=== PATIENT | male | born 1995 | race Caucasian/White ===

== ENCOUNTER 2025-06-04 05:40 | Emergency (ER) | payer MEDICAID, SELFPAY ==
[2025-06-04 05:41] VITALS: BMI 25.1
[2025-06-04 06:09] VITALS: BP 151/74; PULSE 70; RESP 16; TEMP 36.5; O2SAT 97
--- NOTE | 2025-06-04 06:17 | EDNOTE_ITS ---
<Statement entered by Rashida Hartman MD - 06/04/25 11:01> As co-signing physician, I was present and available for consult prn. I concur with the plan and care as documented by the midlevel provider. ED Eye Problem RME/HPI General Chief complaint: Eye Problems Stated complaint: L EYE INJURY Time Seen by Provider: 06/04/25 06:12 Source: patient Arrival date/time: 06/04/25 05:40 29-year-old male with no known medical history presents to the emergency room wi th a chief complaint of tenderness to his left eye. Patient states last night his son accidentally poked him in the eye Mode of arrival: ambulatory Limitations: no limitations Related Data Previous Rx's ?Medication ?Instructions ?Recorded cephalexin 500 mg capsule 500 mg PO Q8H #30 caps 08/15 ibuprofen 800 mg tablet (IBU) 800 mg PO TID PRN pain # 30 tabs 08/15/21 cephalexin 500 mg capsule 500 mg PO QID #30 caps 02/09 tamsulosin 0.4 mg capsule (Flomax) 0.4 mg PO QDAY #5 c aps 02/09/23 ciprofloxacin HCl 0.3 % eye drops See Rx Instructions ophthalmic 06/04/25 (eye) .COMPLEX #5 mL Allergies Allergy/AdvReac Type Severity Reaction Status Date / Time No Known Allergies Allergy Verified 06/04/25 05:45 Review of Systems Review of Systems Systems Reviewed: All systems reviewed, normal except as documented Constitutional Constitutional: Reports system reviewed and no additional complaints, except as documented, Denies fatigue, Denies fever(s), Denies headache(s) and Denies weakness Eyes Eyes: Reports system reviewed and no additional complaints, except as documented, Denies blind spots, Reports blurry vision, Denies change in vision, Denies decreased night vision, Denies diplopia, Denies eye discharge, Denies floaters, Denies loss of peripheral vision, Denies loss of vision, Denies other visual disturbances, Reports eye pain, Denies photophobia, Denies requires corrective lenses, Denies seeing flashes, Denies spots in vision and Denies tunnel vision ENT Ears, Nose, Mouth, and Throat: Reports system reviewed and no additional complaints, except as documented, Denies otalgia, Denies headache(s), Denies nasal congestion, Denies throat swelling and Denies vertigo Cardiovascular Cardiovascular: Reports system reviewed and no additional complaints, except as documented, Denies chest pain, Denies dyspnea and Denies dyspnea on exertion Respiratory Respiratory: Reports system reviewed and no additional complaints, except as documented, Denies chest congestion, Denies cough, Denies dyspnea, Denies dyspnea on exertion and Denies wheezing Gastrointestinal Gastrointestinal: Reports system reviewed and no additional complaints, except as documented, Denies abdominal pain, Denies cramping, Denies nausea and Denies vomiting Genitourinary Genitourinary: Reports system reviewed and no additional complaints, except as documented, Denies dysuria and Denies hematuria Musculoskeletal Musculoskeletal: Reports system reviewed and no additional complaints, except as documented and Denies back pain Integumentary/Breasts Skin/Breast: Reports system reviewed and no additional complaints, except as documented and Denies wounds Neurologic Neurologic: Reports system reviewed and no additional complaints, except as documented, Denies confusion, Denies headache(s), Denies lack of coordination, Denies loss of vision, Denies vertigo and Denies weakness Psychiatric Psychiatric: Reports system reviewed and no additional complaints, except as documented, Denies anxiety, Denies confusion, Denies depression, Denies paranoia, Denies suicidal ideation and Denies tactile hallucinations Endocrine Endocrine: Reports system reviewed and no additional complaints, except as documented and Denies fatigue Hematologic/Lymphatic Hematologic/Lymphatic: Reports system reviewed and no additional complaints, exc ept as documented and Denies lymphadenopathy Allergic/Immunologic Allergic/Immunologic: Reports system reviewed and no additional complaints, except as documented, Denies throat swelling, Denies urticaria and Denies wheezing ED Exam General Limitations: Present no limitations General appearance: Present alert and in no apparent distress Head Head exam: Present atraumatic Eye Eye exam: Present normal appearance, PERRL and EOMI; Absent conjunctival injection Expanded Eye Exam Pupils: Bilateral: regular, round and reactive Sclera/Conjunctival: bilateral: normal inspection Visual acuity (R) = 20/: 25 Visual acuity (L) = 20/: 25 ENT ENT exam: Present normal exam, normal oropharynx and mucous membranes moist Neck Neck exam: Present normal inspection, full ROM and trachea midline Chest Chest inspection: Present normal inspection and symmetric chest wall rise Respiratory Respiratory exam: Present normal lung sounds bilaterally Cardiovascular Cardiovascular exam: Present regular rate, normal rhythm and normal heart sounds Abdominal Exam Abdominal exam: Present soft and normal bowel sounds Extremities Exam Extremities exam: Present normal inspection and full ROM Back Exam Back exam: Present normal inspection and full ROM Neurological Exam Neurological exam: Present alert, oriented X3 and CN II-XII intact Psychiatric Psychiatric exam: Present normal affect and normal mood Skin Skin exam: Present warm, dry, intact and normal color Course Quality Measures none Orders Category Date Time Status ED Eye Irrigation ONCE Care 06/04/25 06:17 Active Visual Acuity X1 Care 06/04/25 06:17 Active Garduno Lamp to Bedside X1 Care 06/04/25 06:17 Active Fluorescein Sodium [Bio-Nataly] Med 06/04/25 06:17 Discontinued 1 mg LEFT EYE X1 ONE TETRACAINE Op Destiny 0.5% [Pontocaine Op Destiny 0.5%] Med 06/04/25 06:17 Discontinued 1 drop LEFT EYE X1 ONE Vital Signs Vital signs: Vital Signs Temperature 97.7 F 06/04/25 06:09 Pulse Rate 70 06/04/25 06:09 Respiratory Rate 16 06/04/25 06:09 Blood Pressure 151/74 H 06/04/25 06:09 Pulse Oximetry (%) 97 06/04/25 06:09 Oxygen Delivery Method Room Air 06/04/25 06:09 PROCEDURES: Garduno Lamp Exam Left eye: Flourescein uptake:: Yes Garduno Lamp Findings: Corneal abrasion Eye MDM Narrative MDM Narrative:: 29-year-old male with no known medical history presents to the emergency room with a chief complaint of tenderness to his left eye. Patient states last night his son accidentally poked him in the eye Patient is hemodynamically stable and in no apparent distress Physical examination shows normal eye exam. Pupils are PERRLA EOMs are intact. There is some erythema around the left eye. Conjunctive is within normal limits. A Garduno lamp examination was completed and shows a corneal abrasion to the right lower part of the eye. There is no corneal ulceration, no hyphema, no rust ring. The patient's visual acuity test was 20/25 bilaterally. The patient denies any spots in the vision loss of vision loss of peripheral vision or any other visual disturbances besides blurry vision. Antibiotics are sent to the patient's pharmacy and the patient was educated to follow-up with primary care provider and if the symptoms continue have a referral to an warehouse distribution specialist. Patient was discharged and educated to follow-up with primary care provider in the next 24 to 48 hours and return to the emergency room for any evidence of worsening signs or symptoms Patient data External records reviewed:: [facility] previous records Clinical information provided by:: patient Social determinants that could affect healthcare access:: none Patient has the following chronic illnesses:: No chronic illness How is presenting disease/condition affected by chronic disease/condition?: no chronic disease Evaluation data The following diagnostics were reviewed and interpreted by me:: lab results and radiology exam(s) Lab and/or radiology exams considered but not ordered:: Labs and radiology exams considered and ordered Interpretation Summary: N/A Medications / Prescriptions Medications or Prescriptions considered but not ordered:: Medication given Medication administrations:: Medication Administration History Discontinued Medications Fluorescein Sodium (Fluorescein Sod 1 Mg Strp) 1 mg LEFT EYE X1 ONE Stop: 06/04/25 06:18 Last Admin: 06/04/25 06:40 Dose: 1 mg Documented By: DANNI Comments: GIVEN BY PROVIDER, MED DISPOSED PRIOR TO SCANNING Tetracaine HCl (Tetracaine Pf Op Destiny 0.5% 4 Ml Drpette) 1 drop LEFT EYE X1 ONE Stop: 06/04/25 06:18 Last Admin: 06/04/25 06:40 Dose: 1 drop Documented By: DANNI Medication given Consultations Consultation(s) initiated? (list below): No Diagnosis Eye Problem Differential Diagnosis: corneal abrasion, conjunctivitis, acute iritis, hyphema and corneal ulcer Most likely diagnosis given after review of the tests above:: Corneal abrasion Admission Indicated Admission indicated?: not indicated Admission Request Was there a request for admission?: No Disposition Plan Disposition Plan: Discharge Discharge Attestation Discharge Attestation: The patient and all family members were given an opportunity to ask questions and understood the discharge instructions. Discharge instructions specifically effects, indications for sooner follow up or return to the emergency department, and the expected course of current diagnosis. Patient condition: Stable Discharge Plan Plan Patient Disposition: HOME (Self Care) Discharge Disposition comment: Stable Prescriptions/Referrals Prescriptions/Med Rec: New ciprofloxacin HCl 0.3 % drops See Rx Instructions .ROUTE .COMPLEX Qty: 5 0RF Rx Instructions: put 1-2 drps in affected eye(s) every 2hr up to 8 times/day x2days; then 4 times/day x5days No Action cephalexin 500 mg capsule 500 mg PO Q8H Qty: 30 0RF ibuprofen [IBU] 800 mg tablet 800 mg PO TID PRN (Reason: pain) Qty: 30 0RF cephalexin 500 mg capsule 500 mg PO QID Qty: 30 0RF tamsulosin [Flomax] 0.4 mg capsule 0.4 mg PO QDAY Qty: 5 0RF Problem List Clinical Impression: Corneal abrasion Patient/Caregiver Discharge Instructions Education Materials: ED Corneal Abrasion Additional Instructions: Please follow-up with your primary care provider in the next 24 to 48 hours Antibiotics are sent to your pharmacy please pick them up and take them as indicated For any evidence of worsening signs or symptoms return to the emergency room immediately Print Language: Ivorian Stand Alone Forms: Leisa Award Info., Work/School Release, Patient Portal Info Letter PA/MANAGER ROUTE Supervising Physician PA/REMI Supervising Physician: Dr. HARTMAN
[2025-06-04] MEDS: FLUORESCEIN SOD 1 MG STRP LEFT EYE (06:40)
[2025-06-04] MEDS: TETRACAINE PF OP SOL 0.5% 4 ML DRPETTE 1 DROP LEFT EYE (06:40)
== END 2025-06-04 06:52 | disposition home or self-care (01) ==
LOC: SERX 08:07
PROVIDERS: Emergency Provider Nurse Practitioner Family; PCP Family Medicine
DX: S05.00XA Injury of conjunctiva and corneal abrasion without foreign body, unspecified eye, initial encounter (principal); X58.XXXA Exposure to other specified factors, initial encounter
CPT/HCPCS: 99283

== ENCOUNTER 2025-08-04 18:14 | Emergency (ER) | payer MEDICAID, SELFPAY ==
[2025-08-04 18:26] VITALS: BP 153/82; PULSE 88; RESP 19; TEMP 36.7; O2SAT 97; BMI 25.7
--- NOTE | 2025-08-04 19:01 | XR_ITS ---
Examination: Hand, left 2 views Technique: AP lateral left hand 2 views Date and time: August 04, 2025, 1902 hours INDICATIONS: Injury to the hand today, hand pain. FINDINGS: Old fracture distal fifth metacarpal No acute fracture No foreign body IMPRESSION: No acute fracture
[2025-08-04] MEDS: IBUPROFEN TAB 400 MG TABLET 800 MG PO (20:24)
--- NOTE | 2025-08-04 20:27 | EDNOTE_ITS ---
ED Wound/Laceration-RME/HPI General Chief Complaint: Wound/Laceration Stated Complaint: LACERATION TO TIP OF FINGER ON LEFT Time Seen by Provider: 08/04/25 18:36 Arrival date/time: 08/04/25 18:14 This is a case of 29-year-old male with no medical history came in in the emergency room due to finger injury history of present illness started 1 hour prior to arrival in the emergency room patient accidentally cut his finger with a chainsaw sustaining a skin abrasion and finger laceration on the distal part of the fifth finger left hand patient tetanus shot is not up-to-date no other injury noted Limitations: no limitations Related Data Previous Rx's ?Medication ?Instructions ?Recorded cephalexin 500 mg capsule 500 mg PO Q8H #30 caps 08/15 ibuprofen 800 mg tablet (IBU) 800 mg PO TID PRN pain # 30 tabs 08/15/21 cephalexin 500 mg capsule 500 mg PO QID #30 caps 02/09 tamsulosin 0.4 mg capsule (Flomax) 0.4 mg PO QDAY #5 c aps 02/09/23 ciprofloxacin HCl 0.3 % eye drops See Rx Instructions ophthalmic 06/04/25 (eye) .COMPLEX #5 mL cephalexin 500 mg capsule 500 mg PO Q8H #30 caps 08/04 ibuprofen 800 mg tablet 800 mg PO Q8H PRN pain #20 t abs 08/04/25 mupirocin 2 % topical ointment 1 applic topical TID #2 2 grams 08/04/25 (Centany) Allergies Allergy/AdvReac Type Severity Reaction Status Date / Time No Known Allergies Allergy Verified 08/04/25 18:17 Review of Systems Review of Systems Systems Reviewed: All systems reviewed, normal except as documented Constitutional Constitutional: Reports system reviewed and no additional complaints, except as documented and Reports as per HPI Cardiovascular Cardiovascular: Reports system reviewed and no additional complaints, except as documented and Reports as per HPI Respiratory Respiratory: Reports system reviewed and no additional complaints, except as documented and Reports as per HPI Gastrointestinal Gastrointestinal: Reports system reviewed and no additional complaints, except as documented and Reports as per HPI Musculoskeletal Musculoskeletal: Reports system reviewed and no additional complaints, except as documented and Reports as per HPI Integumentary/Breasts Skin/Breast: Reports system reviewed and no additional complaints, except as documented and Reports as per HPI Neurologic Neurologic: Reports system reviewed and no additional complaints, except as documented and Reports as per HPI Past Medical History Past Medical History CARDIAC: Negative Congestive Heart Failure RESPIRATORY: Negative Chronic Obstructive Pulmonary Disease (COPD) GENITOURINARY: Negative Renal Disease ENDOCRINE: Negative Diabetes Mellitus Type 1 or Diabetes Mellitus Type 2 Social History SMOKING STATUS: Current every day smoker ED Exam General Limitations: Present no limitations General appearance: Present alert, in no apparent distress and other (Patient is awake alert oriented not in distress nontoxic looking well-hydrated well- nourished) Head Head exam: Present atraumatic, normocephalic and normal inspection Eye Eye exam: Present normal appearance, PERRL and EOMI ENT ENT exam: Present normal exam, normal oropharynx and mucous membranes moist Neck Neck exam: Present normal inspection, full ROM and trachea midline; Absent tenderness, meningismus, lymphadenopathy or thyromegaly Chest Chest inspection: Present normal inspection and symmetric chest wall rise; Absent tenderness Respiratory Respiratory exam: Present normal lung sounds bilaterally; Absent respiratory distress, wheezes, stridor or prolonged expiratory phase Cardiovascular Cardiovascular exam: Present regular rate, normal rhythm and normal heart sounds; Absent bradycardia, tachycardia, irregular rhythm, systolic murmur or diastolic murmur Abdominal Exam Abdominal exam: Present soft and normal bowel sounds; Absent distention, tenderness, guarding, rebound, rigidity, diminished bowel sounds, hyperactive bowel sounds, hypoactive bowel sounds or organomegaly Extremities Exam Extremities exam: Present normal inspection and full ROM Back Exam Back exam: Present normal inspection and full ROM Neurological Exam Neurological exam: Present alert, oriented X3, CN II-XII intact, normal gait and reflexes normal; Absent motor sensory deficit Psychiatric Psychiatric exam: Present normal affect and normal mood Skin Skin exam: Present warm, dry, intact, normal color and other (Noted 1.5 laceration pain finger left hand irregular with skin avulsion no tendon injury nail is intact no abscess no cellulitis minimal bleeding no foreign body ROM intact neurovascular and) Course Quality Measures none Orders Category Date Time Status XR hand LT 2V Stat Exams 08/04/25 19:01 Completed Ibuprofen Tab [Motrin Tab] Med 08/04/25 19:50 Discontinued 800 mg PO X1 ONE TET,DIP/PERT AC (Adult)-Tdap [Boostrix Adult (Tdap) Med 08/04/25 19:01 Discontinued Vacc] 0.5 ml IMI .ONCE ONE cephALEXin [Keflex] Med 08/04/25 19:50 Discontinued 1,000 mg PO X1 ONE Vital Signs Vital signs: Vital Signs Temperature 98.1 F 08/04/25 18:26 Pulse Rate 88 08/04/25 18:26 Respiratory Rate 19 08/04/25 18:26 Blood Pressure 153/82 H 08/04/25 18:26 Pulse Oximetry (%) 97 08/04/25 18:26 Oxygen Delivery Method Room Air 08/04/25 18: Oxygen saturation 97% room air PROCEDURES: Laceration Laceration 1: Site: other (Finger left hand) Side (If applicable): left Size (cm): 1.5 Description: irregular Depth: simple, single layer Local Anesthetic: lidocaine 1% Amount of anesthesia used (mL): 4 Pre-repair: wound explored, irrigated extensively and deep structures intact Skin layer closed with: nylon Suture size (cm): 4-0 Number of sutures: 2 Wound / Laceration MDM Narrative MDM Narrative:: This is a case of 29-year-old male with no medical history came in in the emergency room due to finger injury history of present illness started 1 hour prior to arrival in the emergency room patient accidentally cut his finger with a chainsaw sustaining a skin abrasion and finger laceration on the distal part of the fifth finger left hand patient tetanus shot is not up-to-date no other injury noted physical examination patient is awake alert oriented not in distress nontoxic looking well-hydrated well-nourished patient sustained a skin avulsion and 1.5 laceration on the distal tip finger left hand with minimal bleeding no foreign body no tendon injury no abscess no cellulitis ROM intact pulses were full and equal capillary refill less than 2 seconds sensory intact nail is intact x-ray showed a fracture of the distal tuft finger of the left hand laceration repair was performed patient tolerated well the procedure procedure done by [place] protocol and via sterile technique cephalexin was given due to open fracture of the finger and reported skin ointment to prevent infection ibuprofen for pain patient will follow-up with PCP in 2 days for reevaluation and wound check in 10 days for removal of suture he also need to be referred to orthopedic surgeon for further evaluation and treatment of open distal tuft fracture of the fifth finger left hand worsening symptoms or any emergent concerns such as redness swelling discharge from the wound pain fever chills return to the emergency room immediately or call 911 keep the wound clean and dry advised Patient was discharged with comfortable condition walking with stable gait. Patient verbalized no further complains explained diagnosis and answered patient question. Patient is comfortable with the proposed management plan including the need to follow up with his/her primary care physician and any specialist if applicable Discussed patient for any urgent condition or worsening sx, He/She needed to go to emergency room immediately or call 911. Patient acknowledge the responsibility to follow up as instructed and to monitor her/his symptoms. For any persistence of the symptoms for more than 3-5 days return precaution advised. Discussed the result of the test and was given printed discharge instruction Patient data External records reviewed:: [facility] previous records Clinical information provided by:: patient Social determinants that could affect healthcare access:: none Patient has the following chronic illnesses:: None How is presenting disease/condition affected by chronic disease/condition?: no chronic disease Evaluation data The following diagnostics were reviewed and interpreted by me:: radiology exam(s) Lab and/or radiology exams considered but not ordered:: Reviewed Interpretation Summary: Reviewed Medications / Prescriptions Medications or Prescriptions considered but not ordered:: Given Medication administrations:: Medication Administration History Discontinued Medications Cephalexin HCl (Cephalexin 250 Mg Capsule) 1,000 mg PO X1 ONE Stop: 08/04/25 19:51 Last Admin: 08/04/25 20:24 Dose: 1,000 mg Documented By: DANIEL Diphtheria/Tetanus/Acell Pertussis (Diphth,Pertuss(Acell),Tet Vac 0.5 Ml Syr- Adult) 0.5 ml IMi .ONCE ONE Stop: 08/04/25 19:02 Last Admin: 08/04/25 20:22 Dose: Not Given Documented By: BD Non-Admin Reason: Patient Refused Ibuprofen (Ibuprofen Tab 400 Mg Tablet) 800 mg PO X1 ONE Stop: 08/04/25 19:51 Last Admin: 08/04/25 20:24 Dose: 800 mg Documented By: DANIEL Given Consultations Consultation(s) initiated? (list below): No Diagnosis Wound Differential Diagnosis: laceration Most likely diagnosis given after review of the tests above:: Laceration skin avulsion Admission Indicated Admission indicated?: not indicated Explain why admission is indicated or not indicated:: Not indicated Admission Request Was there a request for admission?: No Admission Attestation Admission request attestation: Not indicated Disposition Plan Disposition Plan: Discharge Discharge Attestation Discharge Attestation: The patient and all family members were given an opportunity to ask questions and understood the discharge instructions. Discharge instructions specifically effects, indications for sooner follow up or return to the emergency department, and the expected course of current diagnosis. Patient condition: Stable Discharge Plan Plan Patient Disposition: HOME (Self Care) Patient condition on transfer: Stable Prescriptions/Referrals Prescriptions/Med Rec: New cephalexin 500 mg capsule 500 mg PO Q8H Qty: 30 0RF ibuprofen 800 mg tablet 800 mg PO Q8H PRN (Reason: pain) Qty: 20 0RF mupirocin [Centany] 2 % ointment 1 applic topical TID Qty: 22 0RF No Action cephalexin 500 mg capsule 500 mg PO Q8H Qty: 30 0RF ibuprofen [IBU] 800 mg tablet 800 mg PO TID PRN (Reason: pain) Qty: 30 0RF cephalexin 500 mg capsule 500 mg PO QID Qty: 30 0RF tamsulosin [Flomax] 0.4 mg capsule 0.4 mg PO QDAY Qty: 5 0RF ciprofloxacin HCl 0.3 % drops See Rx Instructions .ROUTE .COMPLEX Qty: 5 0RF Rx Instructions: put 1-2 drps in affected eye(s) every 2hr up to 8 times/day x2days; then 4 times/day x5days Problem List Clinical Impression: Avulsion of skin, Finger laceration, Open fracture of tuft of distal phalanx of finger Patient/Caregiver Discharge Instructions Education Materials: Suture Care, ED Fracture, Finger, Open, ED Laceration: All Closures Additional Instructions: Follow-up with your primary care physician in 2 days for reevaluation and wound check and to be referred to orthopedic surgeon or hand surgeon for further evaluation and treatment of open distal tuft fracture of the fifth finger left hand you need also to return to your primary care physician in 10 days for removal of suture for any worsening symptoms any emergent concerns such as redness swelling discharge from the wound pain fever chills return to the emergency room immediately or call 911 wound care and finish the antibiotic as advised Print Language: Moroccan Stand Alone Forms: Leisa Award Info., Patient Portal Info Letter PA/REMI Supervising Physician PA/REMI Supervising Physician: Dr. Espinal
== END 2025-08-04 20:27 | disposition home or self-care (01) ==
LOC: SERX 20:22
PROVIDERS: Emergency Provider Emergency Medicine; PCP Physician Assistant
DX: S62.630B Displaced fracture of distal phalanx of right index finger, initial encounter for open fracture (principal); W27.0XXA Contact with workbench tool, initial encounter; Z23 Encounter for immunization
CPT/HCPCS: 12001; 73120; 99283; A9270